=== PATIENT | female | born 1945 | race Caucasian/White ===

== ENCOUNTER 2017-12-03 05:30 | Day surgery (SDC) | payer OTHER ==
[~2017-12-03 05:30] MED LIST: CYMBALTA30 MG PO; PLAVIX75 MG PO; PRILOSEC OTC20 MG PO; SENSIPAR30 MG PO; SIMVASTATIN10 MG PO; [UNRECOGNIZED DRUG - OTHER] PO
== END 2017-12-03 09:45 | disposition home or self-care (01) ==
LOC: CIR.AMB 05:30
DX: G56.01 Carpal tunnel syndrome, right upper limb (principal)